=== PATIENT | female | born 1985 | race Caucasian/White ===

== ENCOUNTER 2020-12-06 23:15 | Inpatient (IN) | payer OTHER, SELFPAY ==
[2020-12-06 23:07] VITALS: BP 129/75; PULSE 88; TEMP 36.9; O2SAT 99
[2020-12-06] MEDS: Lactated Ringers 500 ML 999 ML IV (23:30)
[2020-12-06 23:35] VITALS: BMI 25.7
[2020-12-06 23:51] LABS: Absolute Lymphocyte Count 1.25 X10^3/uL (0.83-4.51); Absolute Neutrophil Count 9.5 X10^3/uL (2.0-7.7); Basophil# 0.02 X10^3/uL; Basophil% 0.2 % (0-1); Eosinophil# 0.07 X10^3/uL; Eosinophils% 0.6 % (0-5); Hematocrit 35.5 % (37-47); Hemoglobin 11.5 g/dL (12.0-15.0); Lymphocyte # 1.25 X10^3/ul (0.83-4.51); Lymphocyte % 10.7 % (19-41); Mean Corp Hgb Conc 32.4 g/dL (32-36); Mean Corpuscular Hgb 29.7 pg (27.0-32.0); Mean Corpuscular Volume 91.7 fL (81-99); Mean Platelet Vol. 11.3 fl (6.2-12.0); Monocyte# 0.79 X10^3/uL; Monocyte% 6.8 % (0-10); NRBC Flagged by Analyzer 0 % (0-5); Neutrophil # 9.52 X10^3/uL (2.7-7.7); Neutrophil % 81.3 % (47-70); Platelet Count 190 K/mm3 (150-450); Red Blood Count 3.87 M/mm3 (4.2-5.4); White Blood Count 11.7 K/mm3 (4.4-11.0)
[2020-12-07] VITALS (69 sets, daily range): BP systolic 97–172; BP diastolic 53–83; PULSE 66–108; RESP 16; TEMP 35.9–37.1; O2SAT 80–100
[2020-12-07] MEDS: Lactated Ringers 1,000 ML 50 ML IV (00:01)
[2020-12-07] MEDS: Ondansetron 4 MG/2 ML Vial IV (00:01)
[2020-12-07] MEDS: fentaNYL-bupivacaine (epidural) 100 ML BAG EPIDURAL (00:54)
--- NOTE | 2020-12-07 01:30 | PCM.HP.OB ---
HPI - General General Date of Admission: 12/06/20 HPI Narrative TAM DONOVAN, is a 35 F at 39.0 weeks gestation who presents to labor and delivery in spontaneous, active labor. Patient reports having contractions all day and was seen earlier today in office and was 4/80/-1. Positive movement. Denies any loss of fluid or vaginal bleeding. Patient was scheduled for induction of labor for tomorrow for AGA and suspected LGA. Maternal Data Information MONIKA Calculator Estimated Delivery Date Method Current WG Current Estimate 12/13/20 Manual 39w 1d PFSH PFSH Medical History Anxiety Depression Home Medications [id number] [] tab PO 12/06/20 [History Last Taken 12/05/20] Allergy/AdvReac Type Severity Reaction Status Date / Time No Known Allergies Allergy Verified 12/06/20 23:56 Social History Smoking Status: Never smoker History Elective abortions Hx Para 1 Spontaneous abortions Hx # Term Pregnancies Ectopic pregnancies Hx # Pregnancies Multiple births # of living children NST FHR Rate Baby A Baseline: 140 Variability:: Moderate Accelerations:: 15 x 15 Decelerations:: None NST Reactive:: Yes FHR Category:: Category I Uterine Activity:: TOCO reading 2-4 minutes ROS Eyes Eyes: Denies blurry vision, change in vision or spots in vision ENT HEENT: Denies dizziness or headache(s) Cardiovascular Cardiovascular: Denies abdominal pain, chest pain or dyspnea Respiratory/Chest Respiratory/Chest: Denies cough, dyspnea, shortness of breath at rest or shortness of breath with exertion Gastrointestinal Gastrointestinal: Denies abdominal pain, diarrhea or vomiting Genitourinary Genitourinary: Denies change in urinary stream, difficulty urinating or dysuria Musculoskeletal Musculoskeletal: Reports none Integumentary Integumentary: Denies rash Neurologic Neurologic: Denies dizziness, headache(s), memory loss or weakness Psychiatric Psychiatric: Reports none Vital Signs Vital Signs Vital Signs: 12/06/20 23:07 12/07/20 00:25 12/07/20 00:26 Temperature 98.5 F Temperature Source Temporal Pulse Rate 88 91 Blood Pressure 129/75 H 132/74 H BP Systolic 129 132 BP Diastolic 75 74 Pulse Ox 99 99 12/07/20 00:31 12/07/20 00:36 12/07/20 00:40 Temperature Temperature Source Pulse Rate 83 85 Blood Pressure 126/79 H 123/78 H 124/74 H BP Systolic 126 123 124 BP Diastolic 79 78 74 Pulse Ox 98 98 12/07/20 00:41 12/07/20 00:46 12/07/20 00:47 Temperature Temperature Source Pulse Rate 102 H 90 100 Blood Pressure 111/60 BP Systolic 111 BP Diastolic 60 Pulse Ox 97 98 12/07/20 00:51 12/07/20 00:56 12/07/20 01:00 Temperature Temperature Source Pulse Rate 84 85 Blood Pressure 109/68 123/74 H 108/55 L BP Systolic 109 123 108 BP Diastolic 68 74 55 Pulse Ox 96 97 12/07/20 01:01 12/07/20 01:06 12/07/20 01:07 Temperature Temperature Source Pulse Rate 81 108 H 82 Blood Pressure 110/74 BP Systolic 110 BP Diastolic 74 Pulse Ox 96 98 12/07/20 01:10 12/07/20 01:11 12/07/20 01:16 Temperature 98.0 F Temperature Source Temporal Pulse Rate 90 106 H 72 Blood Pressure 113/67 BP Systolic 113 BP Diastolic 67 Pulse Ox 94 99 97 12/07/20 01:17 12/07/20 01:18 12/07/20 01:21 Temperature 97.7 F L Temperature Source Temporal Pulse Rate 108 H 73 95 Blood Pressure 120/83 H 105/66 BP Systolic 120 105 BP Diastolic 83 66 Pulse Ox 93 97 12/07/20 01:23 12/07/20 01:26 12/07/20 01:27 Temperature Temperature Source Pulse Rate 70 83 81 Blood Pressure 115/66 BP Systolic 115 BP Diastolic 66 Pulse Ox 93 95 Weight Weight: 159 lb 12.8 oz Body Mass Index (BMI) 25.7 Physical Exam Const alert, oriented x3 and no apparent distress General Appearance: cooperative Orientation / Consciousness: awake Exam Limitations: no limitations HEENT normocephalic Head and Scalp: normal to inspection Eyes General Eye: normal appearance of both eyes Neck full ROM and no lymphadenopathy Lymph Lymphatic: no lymphadenopathy noted Chest inspection of chest normal Resp normal respiratory effort, normal air movement and clear to auscultation bilaterally Effort and Inspection: able to speak in complete sentences and symmetric chest movement Cardio regular rate and regular rhythm GI normal to inspection, nondistended, normoactive bowel sounds Manual OB Exam: dilated 6, effaced 80 and station -1 and 0 Back/Spine normal ROM Extremity full ROM and no calf tenderness Skin no rashes or lesions noted General Skin Exam: no breakdown Neuro oriented x3 and CN's II-XII intact bilaterally Psych mental status grossly normal and thought process normal Labs Labs Labs: Blood Type Pending Antibody Screen Pending Hct 35.5 % (37-47) L Hgb 11.5 g/dL (12.0-15.0) L O+ Rubella - immune HB neg HC neg HIV- NR RPR-NR GBS- neg Assessment & Plan (1) 39 weeks gestation of : (2) Spontaneous onset of labor: (3) Active labor at term: (4) LGA (large for gestational age) fetus affecting mother, antepartum: QUALIFIERS: Fetus number: single or unspecified fetus Qualified Code(s): O36.60X0 - Maternal care for excessive growth, unspecified trimester, not applicable or unspecified PLAN: Admit to labor and delivery Routine labs IV fluids per orders Start Pitocin IV and titrate per policy Epidural when indicated GBS neg Anticipate Dr. Corral notified of admission and is collaborating physician
[2020-12-07] MEDS: Oxytocin 30 units/NS 500 ml 30 UNITS/500 ML IV.SOLN 999 UNITS IV (02:05)
--- NOTE | 2020-12-07 02:16 | EX.PCM.OBRPT ---
Assessment & Plan (1) (spontaneous vaginal delivery): (2) Shoulder dystocia, delivered: (3) Precipitous delivery: Maternal Data Information MONIKA Calculator Estimated Delivery Date Method Current WG Current Estimate 12/13/20 Manual 39w 1d Vaginal Delivery Maternal Presentation Maternal Presentation: Active Labor Maternal Presentation: Patient is a at 39.1 weeks gestation that presented in spontaneous, active labor. Operative Information Date of Procedure: 12/07/20 Pre-Operative Diagnosis: Term gestation, spontaneous, active labor Post-Operative Diagnosis: Same, live female infant Surgery / Procedure Performed: Spontaneous Vaginal Delivery (precipitous delivery) Type of Anesthesia: Epidural Estimated Blood Loss: 200 Time of Delivery: 02:03 Findings Description of Procedure: Patient arrived to unit in active labor. S.R.O.M for clear fluid. Called to patient's room due to patient feeling pressure. Complete dilation and +1 station. A straight catheter placed and returned 200cc of clear urine. Patient pushing well with contractions. With minimal maternal effort, head delivered in WILLIAM position. Positive turtle sign. Attempted to deliver anterior shoulder with without success. No excess traction placed on head. Ezequiel maneuver and suprapubic pressure completed with successful release of anterior shoulder after 30 seconds. Vigorous female placed on maternal abdomen and attended to by nursing staff. Pitocin IV started for active management of the third stage of labor. 3 vessel cord clamped and cut after delay by FOB. Cord blood collected and sent. Infant placed immediately skin to skin with patient. Placenta delivered spontaneously and intact. After inspection it was noted that vagina and perineum intact. No lacerations noted. Fundus firm 2 below U. Hemostasis obtained. EBL 200 cc. APGARS 8/9. Patient and infant bonding at this time. Dr. Corral notified of delivery. Presentation: Vertex and WILLIAM Amniotic Membrane Rupture Type: Spontaneous Time of Membrane Rupture: 8 Amniotic Fluid Description: Clear Placental Delivery Description: Spontaneous Placenta Disposition: [facility] Cord Vessel Description: 3 Vessels Cord Entanglement: None Infant A Gender: Female (1 minute): 8 (5 minute): 9 Delayed Cord Clamping: Yes
[2020-12-07] MEDS: Acetaminophen 500 MG Tablet 1000 MG PO ×2 (08:31→16:28)
--- NOTE | 2020-12-07 13:45 | CASEMGMT ---
Social Work Brief Assessment Labor and Delivery Unit Refer documentation below for further details. Date of Referral/Notification: 12/07/20 Time of Referral: 05:11 Referred By: Kathy Emmanuel CNM Reason for Referral: History of depression and anxiety Date of Intervention: 12/07/2020 Time of Intervention: 13:45 Informant: Medical record and mother of baby (MOB) Assessment: Met with MOB and FOB-Buster Walter in room. Introduced role and reason for referral. MOB sitting edge of bed upon entering room, baby girl Silvia sleeping in bassinet. MOB reports has 13 year old at home. MOB reports history of depression and anxiety in the past and states was treated with counseling at that time. MOB denies any mental health concerns. Education provided on signs/symptoms of post- depression. MOB voiced no questions or concerns. MOB states is and nursing is going well. MOB reports good support from FOB, family, and friends. Anticipates discharge home tomorrow, has all needs met for baby. Nursing updated on this worker?s assessment and denies any concerns. Plan: Home with resources provided No further needs requested or indicated.
--- NOTE | 2020-12-07 16:34 | PN.OBGYN_ITS ---
Subjective Subjective Patient seen at bedside. Ambulating in room. Denies any pain. Feeling good. without difficulty. Desires discharge home tomorrow. Objective Data Objective Data Vital Signs: Vital Signs Temp Pulse Resp BP Pulse Ox 98.6 F 103 H 16 104/64 99 12/07/20 16:24 12/07/20 16:24 12/07/20 16:24 12/07/20 16:24 12/07/20 16:24 Oxygen Delivery Method Room Air Weight: 159 lb 12.8 oz Body Mass Index (BMI) 25.7 Intake & Output: Intake and Output for Last 24 Hours 12/05/20 12/06/20 12/07/20 23:59 23:59 23:59 Intake Total 1601.67 / 1601.67 Output Total 750 / 750 Balance 851.67 / 851.67 Lab / Micro Data Result Diagrams: 12/06/20 23:30 Labs: Laboratory Results - last 24 hr 12/06/20 23:30: WBC 11.7 H, RBC 3.87 L, Hgb 11.5 L, Hct 35.5 L, MCV 91.7, MCH 29.7, MCHC 32.4, RDW Std Deviation 43.0, RDW Coeff of Wilfredo 13.0, Plt Count 190, MPV 11.3, Immature Gran % (Auto) 0.400, Neut % (Auto) 81.3 H, Lymph % (Auto) 10.7 L, Merrick % (Auto) 6.8, Eos % (Auto) 0.6, Baso % (Auto) 0.2, Absolute Neuts (auto) 9.5 H, Absolute Lymphs (auto) 1.25, Nucleated RBC % 0 12/06/20 23:30: Blood Type O POSITIVE, Antibody Screen NEGATIVE Micro: Microbiology 12/06/20 23:40 Nasal Secretion SARS-CoV-2 Antigen (Rapid) - Final ROS Eyes Eyes: Denies blurry vision, change in vision or spots in vision ENT HEENT: Denies dizziness or headache(s) Cardiovascular Cardiovascular: Denies abdominal pain, chest pain or dyspnea Respiratory/Chest Respiratory/Chest: Denies cough, dyspnea, shortness of breath at rest or shortness of breath with exertion Gastrointestinal Gastrointestinal: Denies abdominal pain, diarrhea or vomiting Genitourinary Genitourinary: Denies change in urinary stream, difficulty urinating or dysuria Musculoskeletal Musculoskeletal: Reports none Integumentary Integumentary: Denies rash Neurologic Neurologic: Denies dizziness, headache(s), memory loss or weakness Physical Exam Const alert and no apparent distress General Appearance: cooperative and comfortable Exam Limitations: no limitations HEENT normocephalic Eyes General Eye: normal appearance of both eyes Neck full ROM General: normal visual inspection Chest Chest: symmetrical chest wall rise Resp normal respiratory effort and normal air movement Effort and Inspection: symmetric chest movement Auscultation: clear to auscultation bilaterally Cardio regular rate and regular rhythm GI normal to inspection, nondistended, normoactive bowel sounds Back/Spine normal ROM Extremity full ROM and no calf tenderness General Extremity: normal exam except as noted Skin no rashes or lesions noted Neuro CN's II-XII intact bilaterally Psych mental status grossly normal Assessment & Plan (1) Precipitous delivery: (2) Shoulder dystocia, delivered: (3) (spontaneous vaginal delivery): PLAN: Delivery Day- intact Routine care support Anticipate discharge home tomorrow
[2020-12-07] MEDS: Naproxen 500 MG Tablet PO (20:26)
[2020-12-08] MEDS: Acetaminophen 500 MG Tablet 1000 MG PO (02:34)
[2020-12-08 02:35] VITALS: BP 99/66; PULSE 76; RESP 16; TEMP 36.8
[2020-12-08 02:36] VITALS: BP 99/66; PULSE 76
[2020-12-08 08:02] VITALS: BP 102/64; PULSE 75; PULSE 82; RESP 16; TEMP 36.5; O2SAT 98
[2020-12-08 08:03] VITALS: PULSE 81; O2SAT 98
--- NOTE | 2020-12-08 09:18 | PCM.PN.OB ---
Subjective Subjective Patient seen at bedside. Feeling good. Desires discharge home today. without support. Denies any headaches, vision changes, dizziness or SOB. Objective Data Objective Data Vital Signs: Vital Signs Temp Pulse Resp BP Pulse Ox 97.7 F L 81 16 102/64 98 12/08/20 08:02 12/08/20 08:03 12/08/20 08:02 12/08/20 08:02 12/08/20 08:03 Oxygen Delivery Method Room Air Weight: 159 lb 12.8 oz Body Mass Index (BMI) 25.7 Intake & Output: Intake and Output for Last 24 Hours 12/06/20 12/07/20 12/08/20 23:59 23:59 23:59 Intake Total 1601.67 / 1601.67 Output Total 750 / 750 Balance 851.67 / 851.67 Lab / Micro Data Result Diagrams: 12/06/20 23:30 Micro: Microbiology 12/06/20 23:40 Nasal Secretion SARS-CoV-2 Antigen (Rapid) - Final ROS Eyes Eyes: Denies blurry vision, change in vision or spots in vision ENT HEENT: Denies dizziness or headache(s) Cardiovascular Cardiovascular: Denies abdominal pain, chest pain or dyspnea Respiratory/Chest Respiratory/Chest: Denies cough, dyspnea, shortness of breath at rest or shortness of breath with exertion Gastrointestinal Gastrointestinal: Denies abdominal pain, diarrhea or vomiting Genitourinary Genitourinary: Denies change in urinary stream, difficulty urinating or dysuria Musculoskeletal Musculoskeletal: Reports none Integumentary Integumentary: Denies rash Neurologic Neurologic: Denies dizziness, headache(s), memory loss or weakness Physical Exam Const alert and no apparent distress General Appearance: cooperative and comfortable Exam Limitations: no limitations HEENT normocephalic Eyes General Eye: normal appearance of both eyes Neck full ROM General: normal visual inspection Chest Chest: symmetrical chest wall rise Resp normal respiratory effort and normal air movement Effort and Inspection: symmetric chest movement Auscultation: clear to auscultation bilaterally Cardio regular rate and regular rhythm GI normal to inspection, nondistended, normoactive bowel sounds Back/Spine normal ROM Extremity full ROM and no calf tenderness General Extremity: normal exam except as noted Skin no rashes or lesions noted Neuro CN's II-XII intact bilaterally Psych mental status grossly normal Assessment & Plan (1) Precipitous delivery: (2) Shoulder dystocia, delivered: (3) (spontaneous vaginal delivery): PLAN: PPD 2 - precip Routine care Discharge home with follow up in office
--- NOTE | 2020-12-08 09:20 | PCM.DC ---
Discharge Instructions Diet Discharge Diet: No restrictions Activity May resume sexual activity in: 6-8 weeks Weight Bearing Status: Weight bearing as tolerated Dressing / Incision Call your doctor if you observe: Fever of 101 or Higher, Inability to urinate, Using more than 1 pad per hour, Shortness of breath, Chest pain, Calf discomfort and Uncontrolled pain Follow Up Care Please Follow Up With: Kathy Emmanuel CNM When: 2 weeks virtual visit/ 6 weeks in office Test Results: Test results from this visit will be discussed in further detail at your follow-up appointment, if applicable. Discharge Plan Admission Admit Date/Time: 12/06/20 23:15 Primary Reason for Your Visit: Labor and delivery Attending Provider: Kathy Emmanuel Instructions Patient Instructions: : Caring for Yourself Discharge Orders/Prescriptions Prescriptions: No Action 1 mg Tablet PO RF: 0 Disposition Disposition (needs filled in before D/C Order can be placed): Home, Self Care
== END 2020-12-08 10:35 | disposition home or self-care (01) | DRG 807 ==
LOC: WPOUT 23:15 → WP 23:15
PROVIDERS: Admitting Provider Advanced Practice Midwife; Visit Provider Advanced Practice Midwife
DX: O62.3 Precipitate labor (principal); Z37.0 Single live birth; O66.0 Obstructed labor due to shoulder dystocia; O42.92 Full-term premature rupture of membranes, unspecified as to length of time between rupture and onset of labor; O36.63X0 Maternal care for excessive fetal growth, third trimester, not applicable or unspecified; Z3A.39 39 weeks gestation of pregnancy
CPT/HCPCS: 59025; 59050; 85025; 86850; 86900; 86901; 87426; 99218; J7120; G0378; J2405